=== PATIENT | male | born 1980 | race Caucasian/White ===

== ENCOUNTER 2022-01-16 13:02 | Inpatient (IN) | payer MEDICAID ==
[~2022-01-16] VITALS: Ht 167.6 cm; Wt 65.3 kg
[2022-01-16 05:18] VITALS: BP_SYST 78
[2022-01-16 13:05] VITALS: BP_SYST 87
[2022-01-16] MEDS ORDERED: NACL 0.9% 1,000 ML IV ONE (13:30)
[2022-01-16 13:36] LABS: BASOPHILS # (AUTO) 0.1 K/uL (0.0-0.2); BASOPHILS % (AUTO) 0.4 % (0.0-2.0); EOSINOPHILS # (AUTO) 0.3 K/uL (0.0-0.4); EOSINOPHILS % (AUTO) 1.3 % (0.0-4.0); HEMATOCRIT 34.4 % (36-54); HEMOGLOBIN 11.3 g/dL (14.0-18.0); LYMPHOCYTES # (AUTO) 2.6 K/uL (1.0-5.5); LYMPHOCYTES % (AUTO) 12.1 % (20.5-51.5); MEAN CORPUSCULAR HEMOGLOBIN 28 pg (27-31); MEAN CORPUSCULAR HGB CONC 33 % (32-36); MEAN CORPUSCULAR VOLUME 86 fL (79.0-98.0); MONOCYTES % (AUTO) 4.8 % (1.7-9.3); NEUTROPHILS # (AUTO) 17.2 K/uL (1.8-7.7); NEUTROPHILS % (AUTO) 81.4 % (40.0-70.0); PLATELET COUNT (AUTO) 430 K/uL (130-430); RED BLOOD CELL COUNT(AUTO) 3.99 MIL/uL (4.2-6.2); WHITE BLOOD COUNT (AUTO) 21.2 K/uL (4.8-10.8)
[2022-01-16 13:55] LABS: ANION GAP 6 (5-15); CALCIUM 9.6 mg/dL (8.4-11.0); CHLORIDE 97 mmol/L (98-107); CREATININE 0.71 mg/dL (0.55-1.30); GLUCOSE 121 mg/dL (70-99); POTASSIUM 4.3 mmol/L (3.5-5.1); SODIUM SERUM 132 mmol/L (136-145); UREA NITROGEN, BLOOD 26 mg/dL (8-21)
[2022-01-16 14:00] LABS: GFR AFRICAN AMERICAN 146 mL/min (>90); PROTHROMBIN TIME 10.3 SECS (9.5-12.5)
[2022-01-16] MEDS ORDERED: IBUPROFEN 800 MG TABLET PO ONE (14:00)
[2022-01-16] MEDS ORDERED: PIPERACILLIN/TAZO 4.5GM/DEX-IS 100 ML IV SCH (14:00)
[2022-01-16 14:03] LABS: ALANINE AMINOTRANSFERASE 12 U/L (12-78); ALBUMIN 2.7 g/dL (3.4-4.8); ASPARTATE AMINOTRANSFERASE 21 U/L (10-37); C-REACTIVE PROTEIN QUANT 5.5 mg/dL (0-0.5); TOTAL BILIRUBIN 0.5 mg/dL (0.0-1.0)
[2022-01-16] MEDS ORDERED: NACL 0.9% 2,000 ML IV ONE (15:30)
[2022-01-16] MEDS ORDERED: SENN8.6T19 GT (17:02)
[2022-01-16] MEDS ORDERED: LACT10SO6 GT (17:02)
[2022-01-16] MEDS ORDERED: CLON1TAB12 GT (17:02)
[2022-01-16] MEDS ORDERED: DOXY-244 GT (17:02)
[2022-01-16] MEDS ORDERED: ASCO500T20 GT (17:02)
[2022-01-16] MEDS ORDERED: MULT-1117 GT (17:02)
[2022-01-16] MEDS ORDERED: LANS30CA53 GT (17:02)
[2022-01-16] MEDS ORDERED: ZINC500P17 GT (17:02)
[2022-01-16] MEDS ORDERED: CARB15DR OP (17:02)
[2022-01-16] MEDS ORDERED: B CO GT (17:02)
[2022-01-16] MEDS ORDERED: CHLO473M5 PO (17:02)
[2022-01-16] MEDS ORDERED: VITD2000 GT (17:02)
[2022-01-16] MEDS ORDERED: SSREG SUBCUT (17:02)
[2022-01-16] MEDS ORDERED: BISA10SU61 RC (17:02)
[2022-01-16] MEDS ORDERED: METO-442 GT (17:02)
[2022-01-16] MEDS ORDERED: TRAM100T25 GT (17:02)
[2022-01-16] MEDS ORDERED: AMIN30LI2 PO (17:02)
[2022-01-16 18:30] VITALS: BP_SYST 153
[2022-01-16] MEDS ORDERED: GENTAMICIN 100 mg/50 mL NS 50 ML IV ONE (19:00)
[2022-01-16] MEDS: FLUCONAZOLE 400 mg/ NS 200 ML IV SCH (19:56)
[2022-01-16] MEDS: NACL 0.9% 1,000 ML IV SCH ×2 (19:56→23:40)
[2022-01-16 20:00] VITALS: BP_SYST 90
[2022-01-16 20:43] VITALS: BP_SYST 90
[2022-01-16] MEDS: PIPERACILLIN/TAZO 3.375/DEX-IS 50 ML IV SCH (21:56)
[2022-01-16] MEDS: VANCOMYCIN HCL 1,000 MG in NS 250 ML IV SCH (21:56)
[2022-01-17] VITALS: BP_SYST 98
[2022-01-17] MEDS: PIPERACILLIN/TAZO 3.375/DEX-IS 50 ML IV SCH ×4 (03:18→20:24)
[2022-01-17 05:10] LABS: BASOPHILS # (AUTO) 0.1 K/uL (0.0-0.2); BASOPHILS % (AUTO) 0.7 % (0.0-2.0); EOSINOPHILS # (AUTO) 0.2 K/uL (0.0-0.4); EOSINOPHILS % (AUTO) 1.9 % (0.0-4.0); HEMATOCRIT 26.3 % (36-54); HEMOGLOBIN 8.8 g/dL (14.0-18.0); LYMPHOCYTES # (AUTO) 1.4 K/uL (1.0-5.5); LYMPHOCYTES % (AUTO) 13.1 % (20.5-51.5); MEAN CORPUSCULAR HEMOGLOBIN 29 pg (27-31); MEAN CORPUSCULAR HGB CONC 34 % (32-36); MEAN CORPUSCULAR VOLUME 87 fL (79.0-98.0); MONOCYTES # (AUTO) 0.7 K/uL (0.0-1.0); MONOCYTES % (AUTO) 6.1 % (1.7-9.3); NEUTROPHILS # (AUTO) 8.6 K/uL (1.8-7.7); NEUTROPHILS % (AUTO) 78.2 % (40.0-70.0); PLATELET COUNT (AUTO) 304 K/uL (130-430); RED BLOOD CELL COUNT(AUTO) 3.03 MIL/uL (4.2-6.2); RED CELL DISTRIBUTION WIDTH 17.9 % (9.0-15.0)
[2022-01-17 05:32] LABS: ALBUMIN 2.1 g/dL (3.4-4.8); CALCIUM 8.4 mg/dL (8.4-11.0); CREATININE 0.49 mg/dL (0.55-1.30); POTASSIUM 3.8 mmol/L (3.5-5.1); TOTAL BILIRUBIN 0.5 mg/dL (0.0-1.0)
[2022-01-17] MEDS: VANCOMYCIN HCL 1,000 MG in NS 250 ML IV SCH ×3 (05:41→20:28)
[2022-01-17] MEDS: NACL 0.9% 1,000 ML IV SCH ×2 (05:41→12:55)
[2022-01-17 08:00] VITALS: BP_SYST 123
[2022-01-17 12:48] VITALS: BP_SYST 110
[2022-01-17 16:30] VITALS: BP_SYST 114
[2022-01-17 16:52] LABS: BILIRUBIN,URINE NEGATIVE (NEGATIVE); BLOOD, URINE 3+ (NEGATIVE); CLARITY/URINE SL CLOUDY (CLEAR); GLUCOSE,URINE NEGATIVE (NEGATIVE); KETONES,URINE NEGATIVE (NEGATIVE); LEUKOCYTE ESTERASE ,URINE 1+ (NEGATIVE); NITRITE, URINE NEGATIVE (NEGATIVE); PH,URINE 6.5 (5.0-8.0); PROTEIN URINE 1+ (NEGATIVE)
[2022-01-17 17:24] LABS: COLOR,URINE AMBER (YELLOW)
[2022-01-17 17:25] LABS: BACTERIA,URINE FEW /HPF (None Seen); MUCUS,URINE None Seen /LPF (None Seen); RBC,URINE >100 /HPF (0-3)
[2022-01-17] MEDS: FLUCONAZOLE 400 mg/ NS 200 ML IV SCH (17:42)
[2022-01-17 20:00] VITALS: BP_SYST 143
[2022-01-18 00:18] VITALS: BP_SYST 156
[2022-01-18] MEDS: NACL 0.9% 1,000 ML IV SCH ×4 (00:30→18:09)
[2022-01-18] MEDS: PIPERACILLIN/TAZO 3.375/DEX-IS 50 ML IV SCH ×4 (02:28→20:33)
[2022-01-18] MEDS: VANCOMYCIN HCL 1,000 MG in NS 250 ML IV SCH (05:37)
[2022-01-18 06:59] LABS: BASOPHILS % (AUTO) 0.7 % (0.0-2.0); EOSINOPHILS % (AUTO) 0.7 % (0.0-4.0); HEMATOCRIT 28.6 % (36-54); HEMOGLOBIN 9.4 g/dL (14.0-18.0); LYMPHOCYTES % (AUTO) 15.5 % (20.5-51.5); MEAN CORPUSCULAR HEMOGLOBIN 29 pg (27-31); MEAN CORPUSCULAR HGB CONC 33 % (32-36); MEAN CORPUSCULAR VOLUME 87 fL (79.0-98.0); MONOCYTES # (AUTO) 0.2 K/uL (0.0-1.0); MONOCYTES % (AUTO) 3.7 % (1.7-9.3); NEUTROPHILS # (AUTO) 5.1 K/uL (1.8-7.7); NEUTROPHILS % (AUTO) 79.4 % (40.0-70.0); PLATELET COUNT (AUTO) 297 K/uL (130-430); RED BLOOD CELL COUNT(AUTO) 3.28 MIL/uL (4.2-6.2); RETICULOCYTE COUNT 3.4 % (0.5-1.5); WHITE BLOOD COUNT (AUTO) 6.5 K/uL (4.8-10.8)
[2022-01-18 07:59] LABS: TOTAL IRON BIND. CAPACITY 222 ug/dL (250-450)
[2022-01-18 08:04] LABS: ALBUMIN 2.6 g/dL (3.4-4.8); CALCIUM 9.3 mg/dL (8.4-11.0); CREATININE 0.48 mg/dL (0.55-1.30); POTASSIUM 3.7 mmol/L (3.5-5.1); TOTAL BILIRUBIN 0.4 mg/dL (0.0-1.0)
[2022-01-18 08:23] VITALS: BP_SYST 156
[2022-01-18] MEDS: BALSAM PERU/CASTOR OIL 56.7 GM OINT...G. TP SCH (10:16)
[2022-01-18 11:55] VITALS: BP_SYST 143
[2022-01-18] MEDS ORDERED: MULTIVITS,CA,MINERALS/IRON/FA 1 TABLET GT ONE (13:00)
[2022-01-18] MEDS: SOD FERRIC GLUC COMPLEX/SUC 125 MG in NS 100 ML IV SCH (13:59)
[2022-01-18 16:20] VITALS: BP_SYST 137
[2022-01-18] MEDS: traMADol HCL HCL 50 MG TABLET (ULTRAM) PO SCH (18:10)
[2022-01-18] MEDS: FLUCONAZOLE 400 mg/ NS 200 ML IV SCH (18:10)
[2022-01-18 19:30] VITALS: BP_SYST 150
[2022-01-18] MEDS: MULTIVITS,CA,MINERALS/IRON/FA 1 TABLET GT SCH (20:34)
[2022-01-19 00:44] VITALS: BP_SYST 138
[2022-01-19] MEDS: traMADol HCL HCL 50 MG TABLET (ULTRAM) PO SCH ×2 (00:58→06:12)
[2022-01-19] MEDS: PIPERACILLIN/TAZO 3.375/DEX-IS 50 ML IV SCH ×2 (01:00→09:37)
[2022-01-19] MEDS: NACL 0.9% 1,000 ML IV SCH (06:12)
[2022-01-19 08:00] VITALS: BP_SYST 143
[2022-01-19] MEDS ORDERED: LIDOCAINE 1% 10 MG/ML, 20 ML MDV INJ ONE (08:00)
[2022-01-19 08:08] LABS: BASOPHILS % (AUTO) 0.6 % (0.0-2.0); EOSINOPHILS % (AUTO) 0.6 % (0.0-4.0); HEMATOCRIT 27.5 % (36-54); HEMOGLOBIN 9.1 g/dL (14.0-18.0); LYMPHOCYTES # (AUTO) 1.4 K/uL (1.0-5.5); LYMPHOCYTES % (AUTO) 24.5 % (20.5-51.5); MEAN CORPUSCULAR HEMOGLOBIN 29 pg (27-31); MEAN CORPUSCULAR HGB CONC 33 % (32-36); MEAN CORPUSCULAR VOLUME 87 fL (79.0-98.0); MONOCYTES # (AUTO) 0.3 K/uL (0.0-1.0); MONOCYTES % (AUTO) 4.6 % (1.7-9.3); NEUTROPHILS # (AUTO) 3.9 K/uL (1.8-7.7); NEUTROPHILS % (AUTO) 69.7 % (40.0-70.0); PLATELET COUNT (AUTO) 287 K/uL (130-430); RED BLOOD CELL COUNT(AUTO) 3.16 MIL/uL (4.2-6.2); RED CELL DISTRIBUTION WIDTH 18.1 % (9.0-15.0); RETICULOCYTE COUNT 3.9 % (0.5-1.5); WHITE BLOOD COUNT (AUTO) 5.6 K/uL (4.8-10.8)
[2022-01-19 09:27] LABS: ALBUMIN 2.6 g/dL (3.4-4.8); CALCIUM 9.1 mg/dL (8.4-11.0); CREATININE 0.48 mg/dL (0.55-1.30); POTASSIUM 3.4 mmol/L (3.5-5.1); TOTAL BILIRUBIN 0.3 mg/dL (0.0-1.0)
[2022-01-19] MEDS: MULTIVITS,CA,MINERALS/IRON/FA 1 TABLET GT SCH ×2 (09:37→22:02)
[2022-01-19] MEDS: BALSAM PERU/CASTOR OIL 56.7 GM OINT...G. TP SCH (09:38)
[2022-01-19 09:49] LABS: VANCOMYCIN,RANDOM 12.6 ug/mL
[2022-01-19] MEDS ORDERED: POTASSIUM CHLORIDE 20 MEQ/PKT PACKET PO ONE (11:30)
[2022-01-19] MEDS: VANCOMYCIN HCL 1,000 MG in NS 250 ML IV SCH ×2 (11:39→22:04)
[2022-01-19 12:15] VITALS: BP_SYST 151
[2022-01-19] MEDS: AMIKACIN SULFATE IV SCH (12:15)
[2022-01-19] MEDS: D5W IV SCH (12:15)
[2022-01-19] MEDS: traMADol HCL HCL 50 MG TABLET (ULTRAM) GT SCH ×2 (14:44→22:03)
[2022-01-19] MEDS: SOD FERRIC GLUC COMPLEX/SUC 125 MG in NS 100 ML IV SCH (14:44)
[2022-01-19 16:00] VITALS: BP_SYST 147
[2022-01-19] MEDS: FLUCONAZOLE 400 mg/ NS 200 ML IV SCH (18:46)
[2022-01-19 20:00] VITALS: BP_SYST 143
[2022-01-20 00:42] VITALS: BP_SYST 148
[2022-01-20] MEDS: NACL 0.9% 1,000 ML IV SCH ×3 (01:46→22:14)
[2022-01-20] MEDS: D5W IV SCH ×2 (01:46→13:12)
[2022-01-20] MEDS: AMIKACIN SULFATE IV SCH ×2 (01:46→13:12)
[2022-01-20] MEDS: traMADol HCL HCL 50 MG TABLET (ULTRAM) GT SCH ×3 (05:03→22:15)
[2022-01-20] MEDS: MULTIVITS,CA,MINERALS/IRON/FA 1 TABLET GT SCH ×2 (09:17→22:14)
[2022-01-20] MEDS: BALSAM PERU/CASTOR OIL 56.7 GM OINT...G. TP SCH (09:18)
[2022-01-20 11:20] VITALS: BP_SYST 156
[2022-01-20] MEDS: VANCOMYCIN HCL 1,000 MG in NS 250 ML IV SCH ×2 (11:48→22:15)
[2022-01-20] MEDS: SOD FERRIC GLUC COMPLEX/SUC 125 MG in NS 100 ML IV SCH (15:07)
[2022-01-20 16:28] VITALS: BP_SYST 142
[2022-01-20] MEDS: FLUCONAZOLE 400 mg/ NS 200 ML IV SCH (18:53)
[2022-01-20 20:00] VITALS: BP_SYST 143
[2022-01-21] VITALS: BP_SYST 153
[2022-01-21] MEDS: D5W IV SCH ×3 (00:14→23:35)
[2022-01-21] MEDS: AMIKACIN SULFATE IV SCH ×3 (00:14→23:35)
[2022-01-21] MEDS: traMADol HCL HCL 50 MG TABLET (ULTRAM) GT SCH ×3 (05:48→23:35)
[2022-01-21 08:00] VITALS: BP_SYST 150
[2022-01-21] MEDS: MULTIVITS,CA,MINERALS/IRON/FA 1 TABLET GT SCH ×2 (10:41→23:34)
[2022-01-21] MEDS: NACL 0.9% 1,000 ML IV SCH (10:43)
[2022-01-21] MEDS: BALSAM PERU/CASTOR OIL 56.7 GM OINT...G. TP SCH (10:43)
[2022-01-21 12:00] VITALS: BP_SYST 142
[2022-01-21] MEDS: ACETAMINOPHEN 650 MG/20.3 ML UDC GT PRN (12:16)
[2022-01-21] MEDS ORDERED: POTASSIUM CHLORIDE 20 MEQ/PKT PACKET PO ONE (13:45)
[2022-01-21] MEDS: SOD FERRIC GLUC COMPLEX/SUC 125 MG in NS 100 ML IV SCH (18:58)
[2022-01-21] MEDS: VANCOMYCIN HCL 750 MG in NS 250 ML IV SCH (18:59)
[2022-01-21 20:00] VITALS: BP_SYST 148
[2022-01-21] MEDS: FLUCONAZOLE 400 mg/ NS 200 ML IV SCH (21:12)
[2022-01-22 00:12] VITALS: BP_SYST 142
[2022-01-22] MEDS: VANCOMYCIN HCL 750 MG in NS 250 ML IV SCH ×3 (00:48→16:26)
[2022-01-22] MEDS: traMADol HCL HCL 50 MG TABLET (ULTRAM) GT SCH ×3 (06:50→22:50)
[2022-01-22 06:51] LABS: BASOPHILS # (AUTO) 0.1 K/uL (0.0-0.2); BASOPHILS % (AUTO) 0.7 % (0.0-2.0); EOSINOPHILS # (AUTO) 0.2 K/uL (0.0-0.4); HEMATOCRIT 30.5 % (36-54); LYMPHOCYTES # (AUTO) 2.3 K/uL (1.0-5.5); LYMPHOCYTES % (AUTO) 21.3 % (20.5-51.5); MEAN CORPUSCULAR HEMOGLOBIN 29 pg (27-31); MEAN CORPUSCULAR HGB CONC 33 % (32-36); MEAN CORPUSCULAR VOLUME 88 fL (79.0-98.0); MONOCYTES # (AUTO) 0.8 K/uL (0.0-1.0); MONOCYTES % (AUTO) 7.4 % (1.7-9.3); NEUTROPHILS # (AUTO) 7.4 K/uL (1.8-7.7); NEUTROPHILS % (AUTO) 68.6 % (40.0-70.0); PLATELET COUNT (AUTO) 360 K/uL (130-430); RED BLOOD CELL COUNT(AUTO) 3.46 MIL/uL (4.2-6.2); RED CELL DISTRIBUTION WIDTH 18.4 % (9.0-15.0); WHITE BLOOD COUNT (AUTO) 10.7 K/uL (4.8-10.8)
[2022-01-22 08:15] LABS: ALBUMIN 2.6 g/dL (3.4-4.8); CALCIUM 9.7 mg/dL (8.4-11.0); CREATININE 0.44 mg/dL (0.55-1.30); POTASSIUM 4.7 mmol/L (3.5-5.1); TOTAL BILIRUBIN 0.5 mg/dL (0.0-1.0)
[2022-01-22 09:38] VITALS: BP_SYST 142
[2022-01-22] MEDS: MULTIVITS,CA,MINERALS/IRON/FA 1 TABLET GT SCH ×2 (10:31→22:50)
[2022-01-22] MEDS: BALSAM PERU/CASTOR OIL 56.7 GM OINT...G. TP SCH (10:36)
[2022-01-22] MEDS: D5W IV SCH ×2 (12:49→23:03)
[2022-01-22] MEDS: AMIKACIN SULFATE IV SCH ×2 (12:49→23:03)
[2022-01-22 13:57] VITALS: BP_SYST 112
[2022-01-22] MEDS: SOD FERRIC GLUC COMPLEX/SUC 125 MG in NS 100 ML IV SCH (14:59)
[2022-01-22] MEDS ORDERED: BISACODYL 10 MG/SUPPOSITORY RC ONE (16:00)
[2022-01-22] MEDS ORDERED: SODIUM PHOSPHATE,MONO-DIBASIC 133 ML ENEMA RC ONE (16:00)
[2022-01-22 16:01] VITALS: BP_SYST 109
[2022-01-22] MEDS: FLUCONAZOLE 400 mg/ NS 200 ML IV SCH (18:05)
[2022-01-22 20:00] VITALS: BP_SYST 96
[2022-01-23] MEDS: VANCOMYCIN HCL 750 MG in NS 250 ML IV SCH ×3 (00:59→16:20)
[2022-01-23 01:03] VITALS: BP_SYST 113
[2022-01-23] MEDS: traMADol HCL HCL 50 MG TABLET (ULTRAM) GT SCH ×3 (05:50→22:34)
[2022-01-23 06:23] LABS: BASOPHILS # (AUTO) 0.1 K/uL (0.0-0.2); BASOPHILS % (AUTO) 0.7 % (0.0-2.0); EOSINOPHILS # (AUTO) 0.2 K/uL (0.0-0.4); EOSINOPHILS % (AUTO) 1.4 % (0.0-4.0); HEMATOCRIT 31.6 % (36-54); HEMOGLOBIN 10.2 g/dL (14.0-18.0); LYMPHOCYTES # (AUTO) 3.7 K/uL (1.0-5.5); LYMPHOCYTES % (AUTO) 26.1 % (20.5-51.5); MEAN CORPUSCULAR HEMOGLOBIN 29 pg (27-31); MEAN CORPUSCULAR HGB CONC 32 % (32-36); MEAN CORPUSCULAR VOLUME 89 fL (79.0-98.0); MONOCYTES # (AUTO) 1.4 K/uL (0.0-1.0); MONOCYTES % (AUTO) 10.2 % (1.7-9.3); NEUTROPHILS # (AUTO) 8.6 K/uL (1.8-7.7); NEUTROPHILS % (AUTO) 61.6 % (40.0-70.0); PLATELET COUNT (AUTO) 386 K/uL (130-430); RED BLOOD CELL COUNT(AUTO) 3.57 MIL/uL (4.2-6.2); RED CELL DISTRIBUTION WIDTH 19.4 % (9.0-15.0)
[2022-01-23 06:40] LABS: CALCIUM 9.8 mg/dL (8.4-11.0); CREATININE 0.42 mg/dL (0.55-1.30); POTASSIUM 4.3 mmol/L (3.5-5.1)
[2022-01-23 08:00] VITALS: BP_SYST 120
[2022-01-23] MEDS: MULTIVITS,CA,MINERALS/IRON/FA 1 TABLET GT SCH ×2 (10:23→22:32)
[2022-01-23] MEDS: BALSAM PERU/CASTOR OIL 56.7 GM OINT...G. TP SCH (10:25)
[2022-01-23] MEDS: ACETAMINOPHEN 650 MG/20.3 ML UDC GT PRN (11:06)
[2022-01-23] MEDS ORDERED: DOCUSATE SODIUM 100 MG/10 ML UDC PO ONE (12:00)
[2022-01-23] MEDS: D5W IV SCH (12:00)
[2022-01-23] MEDS: AMIKACIN SULFATE IV SCH (12:00)
[2022-01-23 12:02] VITALS: BP_SYST 121
[2022-01-23] MEDS: SOD FERRIC GLUC COMPLEX/SUC 125 MG in NS 100 ML IV SCH (14:00)
[2022-01-23 16:04] VITALS: BP_SYST 113
[2022-01-23] MEDS: FLUCONAZOLE 400 mg/ NS 200 ML IV SCH (17:38)
[2022-01-23 20:00] VITALS: BP_SYST 121
[2022-01-23] MEDS: DOCUSATE SODIUM 100 MG/10 ML UDC PO SCH (22:31)
[2022-01-24] MEDS: VANCOMYCIN HCL 750 MG in NS 250 ML IV SCH ×3 (00:54→17:51)
[2022-01-24 02:06] VITALS: BP_SYST 154
[2022-01-24] MEDS: traMADol HCL HCL 50 MG TABLET (ULTRAM) GT SCH ×2 (05:45→20:00)
[2022-01-24 06:05] LABS: BASOPHILS # (AUTO) 0.1 K/uL (0.0-0.2); EOSINOPHILS # (AUTO) 0.2 K/uL (0.0-0.4); EOSINOPHILS % (AUTO) 1.9 % (0.0-4.0); HEMATOCRIT 29.6 % (36-54); HEMOGLOBIN 9.8 g/dL (14.0-18.0); LYMPHOCYTES # (AUTO) 3.7 K/uL (1.0-5.5); LYMPHOCYTES % (AUTO) 28.1 % (20.5-51.5); MEAN CORPUSCULAR HEMOGLOBIN 29 pg (27-31); MEAN CORPUSCULAR HGB CONC 33 % (32-36); MEAN CORPUSCULAR VOLUME 88 fL (79.0-98.0); MONOCYTES # (AUTO) 1.2 K/uL (0.0-1.0); NEUTROPHILS # (AUTO) 7.8 K/uL (1.8-7.7); PLATELET COUNT (AUTO) 434 K/uL (130-430); RED BLOOD CELL COUNT(AUTO) 3.37 MIL/uL (4.2-6.2); RED CELL DISTRIBUTION WIDTH 19.2 % (9.0-15.0); WHITE BLOOD COUNT (AUTO) 13.1 K/uL (4.8-10.8)
[2022-01-24 06:28] LABS: PROTHROMBIN TIME 10.4 SECS (9.5-12.5)
[2022-01-24 06:40] LABS: CALCIUM 9.6 mg/dL (8.4-11.0); CREATININE 0.52 mg/dL (0.55-1.30); POTASSIUM 4.3 mmol/L (3.5-5.1)
[2022-01-24] MEDS: DOCUSATE SODIUM 100 MG/10 ML UDC PO SCH ×2 (08:48→21:43)
[2022-01-24] MEDS: MULTIVITS,CA,MINERALS/IRON/FA 1 TABLET GT SCH ×2 (08:48→21:43)
[2022-01-24] MEDS: BALSAM PERU/CASTOR OIL 56.7 GM OINT...G. TP SCH (08:49)
[2022-01-24 09:10] VITALS: BP_SYST 133
[2022-01-24] MEDS: ACETAMINOPHEN 650 MG/20.3 ML UDC GT PRN ×2 (09:19→18:43)
[2022-01-24 12:00] VITALS: BP_SYST 117
[2022-01-24] MEDS: SOD FERRIC GLUC COMPLEX/SUC 125 MG in NS 100 ML IV SCH (14:29)
[2022-01-24] MEDS: AMIKACIN SULFATE IV SCH ×3 (14:33)
[2022-01-24] MEDS: D5W IV SCH ×3 (14:33)
[2022-01-24] MEDS ORDERED: LORazepam 1 MG TABLET PO ONE (15:30)
[2022-01-24 16:00] VITALS: BP_SYST 112
[2022-01-24 20:00] VITALS: BP_SYST 100
[2022-01-24] MEDS: LORazepam 1 MG TABLET PO SCH (21:44)
[2022-01-25] VITALS: BP_SYST 121
[2022-01-25] MEDS: VANCOMYCIN HCL 750 MG in NS 250 ML IV SCH ×3 (00:32→17:39)
[2022-01-25 00:41] VITALS: BP_SYST 101
[2022-01-25] MEDS: AMIKACIN SULFATE IV SCH ×2 (01:48→11:51)
[2022-01-25] MEDS: D5W IV SCH ×2 (01:48→11:51)
[2022-01-25] MEDS: traMADol HCL HCL 50 MG TABLET (ULTRAM) GT SCH ×4 (01:49→20:00)
[2022-01-25 08:00] VITALS: BP_SYST 101
[2022-01-25 08:14] LABS: CREATININE 0.42 mg/dL (0.55-1.30); POTASSIUM 5.3 mmol/L (3.5-5.1)
[2022-01-25] MEDS: MULTIVITS,CA,MINERALS/IRON/FA 1 TABLET GT SCH ×2 (09:17→23:26)
[2022-01-25] MEDS: LORazepam 1 MG TABLET PO SCH ×2 (09:18→23:25)
[2022-01-25] MEDS: DOCUSATE SODIUM 100 MG/10 ML UDC PO SCH ×2 (09:18→23:25)
[2022-01-25] MEDS: BALSAM PERU/CASTOR OIL 56.7 GM OINT...G. TP SCH (09:18)
[2022-01-25 10:32] VITALS: BP_SYST 101
[2022-01-25] MEDS ORDERED: SODIUM POLYSTYRENE SULFONATE 15 GM/60 ML UDBTL PO ONE (11:00)
[2022-01-25 12:00] VITALS: BP_SYST 113
[2022-01-25] MEDS: SOD FERRIC GLUC COMPLEX/SUC 125 MG in NS 100 ML IV SCH (15:00)
[2022-01-25 16:00] VITALS: BP_SYST 110
[2022-01-26 00:43] VITALS: BP_SYST 121
[2022-01-26] MEDS: VANCOMYCIN HCL 750 MG in NS 250 ML IV SCH ×3 (01:25→20:08)
[2022-01-26] MEDS: AMIKACIN SULFATE IV SCH ×3 (03:03→23:40)
[2022-01-26] MEDS: D5W IV SCH ×3 (03:03→23:40)
[2022-01-26] MEDS: traMADol HCL HCL 50 MG TABLET (ULTRAM) GT SCH ×4 (03:09→20:07)
[2022-01-26 07:07] LABS: BASOPHILS # (AUTO) 0.1 K/uL (0.0-0.2); BASOPHILS % (AUTO) 1.1 % (0.0-2.0); EOSINOPHILS # (AUTO) 0.2 K/uL (0.0-0.4); EOSINOPHILS % (AUTO) 1.7 % (0.0-4.0); HEMATOCRIT 31.3 % (36-54); HEMOGLOBIN 10.4 g/dL (14.0-18.0); LYMPHOCYTES # (AUTO) 2.9 K/uL (1.0-5.5); LYMPHOCYTES % (AUTO) 28.6 % (20.5-51.5); MEAN CORPUSCULAR HEMOGLOBIN 29 pg (27-31); MEAN CORPUSCULAR HGB CONC 33 % (32-36); MEAN CORPUSCULAR VOLUME 87 fL (79.0-98.0); MONOCYTES # (AUTO) 0.9 K/uL (0.0-1.0); MONOCYTES % (AUTO) 8.8 % (1.7-9.3); NEUTROPHILS % (AUTO) 59.8 % (40.0-70.0); PLATELET COUNT (AUTO) 341 K/uL (130-430); RED BLOOD CELL COUNT(AUTO) 3.59 MIL/uL (4.2-6.2); RED CELL DISTRIBUTION WIDTH 18.3 % (9.0-15.0); WHITE BLOOD COUNT (AUTO) 10.1 K/uL (4.8-10.8)
[2022-01-26 07:58] LABS: ALBUMIN 2.7 g/dL (3.4-4.8); CALCIUM 10.1 mg/dL (8.4-11.0); CREATININE 0.48 mg/dL (0.55-1.30); POTASSIUM 4.6 mmol/L (3.5-5.1); TOTAL BILIRUBIN 0.4 mg/dL (0.0-1.0)
[2022-01-26 08:00] VITALS: BP_SYST 124
[2022-01-26] MEDS: MULTIVITS,CA,MINERALS/IRON/FA 1 TABLET GT SCH ×2 (09:11→20:07)
[2022-01-26] MEDS: DOCUSATE SODIUM 100 MG/10 ML UDC PO SCH ×2 (09:11→20:09)
[2022-01-26] MEDS: LORazepam 1 MG TABLET PO SCH ×2 (09:12→20:07)
[2022-01-26] MEDS: BALSAM PERU/CASTOR OIL 56.7 GM OINT...G. TP SCH (09:13)
[2022-01-26 12:48] VITALS: BP_SYST 118
[2022-01-26 16:05] VITALS: BP_SYST 120
[2022-01-26 19:48] VITALS: BP_SYST 128
[2022-01-26 20:00] VITALS: BP_SYST 128
[2022-01-27 01:06] VITALS: BP_SYST 119
[2022-01-27] MEDS: traMADol HCL HCL 50 MG TABLET (ULTRAM) GT SCH ×2 (02:41→09:00)
[2022-01-27 08:48] VITALS: BP_SYST 138
[2022-01-27] MEDS: DOCUSATE SODIUM 100 MG/10 ML UDC PO SCH (08:59)
[2022-01-27] MEDS: MULTIVITS,CA,MINERALS/IRON/FA 1 TABLET GT SCH (09:00)
[2022-01-27] MEDS: VANCOMYCIN HCL 750 MG in NS 250 ML IV SCH (09:00)
[2022-01-27] MEDS: LORazepam 1 MG TABLET PO SCH (09:00)
[2022-01-27] MEDS: BALSAM PERU/CASTOR OIL 56.7 GM OINT...G. TP SCH (09:01)
[2022-01-27] MEDS: AMIKACIN SULFATE IV SCH (11:58)
[2022-01-27] MEDS: D5W IV SCH (11:58)
== END 2022-01-27 13:40 | DRG 720 ==
LOC: SED 13:02 → SMU 14:11 → STU 15:20
PROVIDERS: ADMIT Internal Medicine; ATTEND Internal Medicine
PROC: 5A1955Z Respiratory Ventilation, Greater than 96 Consecutive Hours (ICD-10-PCS; principal; 2022-01-16)
DX: A41.2 Sepsis due to unspecified staphylococcus (principal); R65.21 Severe sepsis with septic shock; J95.851 Ventilator associated pneumonia; G82.50 Quadriplegia, unspecified; E43 Unspecified severe protein-calorie malnutrition; J15.0 Pneumonia due to Klebsiella pneumoniae; G93.1 Anoxic brain damage, not elsewhere classified; J96.10 Chronic respiratory failure, unspecified whether with hypoxia or hypercapnia; Z93.0 Tracheostomy status; Z99.11 Dependence on respirator [ventilator] status; R13.19 Other dysphagia; L89.309 Pressure ulcer of unspecified buttock, unspecified stage; Z20.822 Contact with and (suspected) exposure to COVID-19; D50.9 Iron deficiency anemia, unspecified; G40.909 Epilepsy, unspecified, not intractable, without status epilepticus; L89.899 Pressure ulcer of other site, unspecified stage; N31.9 Neuromuscular dysfunction of bladder, unspecified; K63.5 Polyp of colon; K80.20 Calculus of gallbladder without cholecystitis without obstruction; K64.8 Other hemorrhoids; R33.9 Retention of urine, unspecified; Z66 Do not resuscitate; Z68.23 Body mass index [BMI] 23.0-23.9, adult; Z87.442 Personal history of urinary calculi; Z93.1 Gastrostomy status; Z93.3 Colostomy status
CPT/HCPCS: 36415; 71045; 76770; 80048; 80053; 80150; 80202; 81000; 82607; 83540; 83550; 83605; 83735; 84484; 85025; 85044; 85610-TC; 85730-TC; 86140; 87040; 87070-TC; 87081; 87086; 87186-TC; 87205-TC; 93005; 94002; 94003; 94640; 94760; 96361; 96365; 99285; G0378; J0278; J1450; J1580; J2001; J2543; J2916; J3370; J7030; J7050; J7060